=== PATIENT | female | born 1950 | race Hispanic/Latino ===

== ENCOUNTER 2018-12-13 17:42 | Emergency (ER) | payer BC, MEDICARE ==
[2018-12-13 18:20] VITALS: RESP 18
[2018-12-13] MEDS ORDERED: Sodium Chloride 0.9% 1,000 ML IV STA (19:28)
--- NOTE | 2018-12-13 19:46 | ED PDOC ---
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 Five days ago, patient reports she had a flu-like illness with cough, congestion, fever, and body aches, which is slowly resolving since, but with the development of the cheek swelling. This morning she went to [facility] where a mumps workup was started which is being sent off to the department of health. She was instructed to quarantine herself for the next five days while results were pending after coming to the ED to r/o parotid gland abscess. Denies having a fever for the past two days. Of note, patient states she has had mumps in the past, but never received the vaccination. PMD: Dr. 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; molly cell lymphoma - Surgical History Other surgeries: splenectomy - Family History Family History: States: Other Other Family History: cancer - Social History Current smoker - smoking cessation education provided: No - Home Medications Home Medications: Ambulatory Orders Medication Instructions Recorded RX: Clindamycin [Cleocin] 300 mg PO TID #21 cap 12/13/18 RX: Prednisone 50 mg PO DAILY #4 tablet 12/13/18 - Allergies Allergies/Adverse Reactions: Allergies Allergy/AdvReac Type Severity Reaction Status Date / Time amoxicillin Allergy RASH Verified 12/13/18 18:17 Review of Systems ROS Statement: Except As Marked, All Systems Reviewed And Found Negative (as per HPI) Constitutional: Positive for: Fever, Other (body aches) ENT: Positive for: Nose Congestion, Other (left cheek swelling associated with pain and difficulty opening/closing mouth) Respiratory: Positive for: Cough Physical Exam - Reviewed Nursing Documentation Reviewed: Yes Vital Signs Reviewed: Yes - Physical Exam Appears: Positive for: Well, No Acute Distress Skin: Positive for: Normal Color (with no erythema or ecchymosis) ENT: Negative for: Other (edema to left cheek with palpable mass within parotid gland, mildly tender to palpation; dry mucous membranes) - Laboratory Results Result Diagrams: 12/13/18 20:00 12/13/18 20:00 - ECG O2 Sat by Pulse Oximetry: 100 (RA) Pulse Ox Interpretation: Normal Medical Decision Making Medical Decision Making: Time: 1927 Initial Impression: parotid cheek swelling Initial Plan: --CT Maxillofacial w/ contrast --CMP --CBC with differential --Normal saline IV 2144 CT Maxillofacial FINDINGS: BONES: No acute fracture or aggressive appearing osseous lesion. The mandible is intact. Streak artifact arising from dental work causes image degradation of the oral cavity. 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 SOFT TISSUES: The left parotid salivary gland is asymmetrically enlarged and edematous thought consistent with sialadenitis. No sialolith is identified. Left molly-glandular soft tissue stranding is also demonstrated which could indicate associated left facial fasciitis. No subcutaneous gas is seen. No identification of abscess formation. The remaining salivary glands appeared unremarkable. SINUSES: There is mucoperiosteal thickening identified within the sphenoid, maxillary and ethmoid sinuses bilaterally consistent with sinusitis. The frontal sinuses appear satisfactorily developed and aerated. ORBITS: The orbits are normal. No retrobulbar hematoma or mass. IMPRESSION: 1. Left parotid sialadenitis. No subcutaneous abscess formation. 2. Left periglandular soft tissue stranding could be consistent with associated xkp-new-guiiher fasciitis involving the left mandibular facial soft tissues. 3. Sphenoid, bilateral maxillary and bilateral ethmoid sinusitis. 4. Advanced degenerative arthritis is noted within the atlanto-dens interval. Scribe Attestation: Documented by Ruth Marie acting as a scribe for Marcy Sexton MD. Provider Scribe Attestation: All medical record entries made by the Scribe were at my direction and personally dictated by me. I have reviewed the chart and agree that the record accurately reflects my personal performance of the history, physical exam, medical decision making, and the department course for this patient. I have also personally directed, reviewed, and agree with the discharge instructions and disposition. Disposition - Clinical Impression Clinical Impression: Parotitis Counseled Patient/Family Regarding: Studies Performed, Diagnosis, Need For Followup, Rx Given - Disposition Referrals: Miguel Angel Banks MD [Staff Provider] - Disposition: Routine/Home Disposition Time: 23:00 Condition: STABLE Additional Instructions: STAY HOME UNTIL YOU HEAR FROM THE DEPARTMENT OF HEALTH, EXCEPT WHEN YOU GET YOUR MEDICATIONS FROM THE PHARMACY PLEASE USE YOUR MASK ANYTIME YOU ARE OUT. TAKE MEDICATIONS PRESCRIBED FOLLOWUP WITH YOUR DOCTOR OR ENT IN A WEEK FOR REEVALUATION Prescriptions: RX: Clindamycin [Cleocin] 300 mg PO TID #21 cap RX: Prednisone 50 mg PO DAILY #4 tablet Instructions: Salivary Gland Infection (DC) Forms: [employer] ([place])
[2018-12-13] MEDS ORDERED: Iohexol 300 100 ML IJ ONE (19:49)
[2018-12-13] MEDS ORDERED: Sodium Chloride 0.9% 50 ML IV ONE (19:49)
[2018-12-13 20:13] LABS: ALB/GLOB RATIO 1.1 (1.0-2.1); ALBUMIN 4.2 g/dL (3.5-5.0); ALT/SGPT 38 U/L (9-52); AST/SGOT 70 U/L (14-36); BLOOD UREA NITROGEN 12 mg/dl (7-17); CALCIUM 10.2 mg/dL (8.4-10.2); GFR NON-AFRICAN AMERICAN > 60
[2018-12-13 20:15] LABS: BASO % 0.3 % (0.0-2.0); EOS % 1.5 % (0.0-4.0); HEMOGLOBIN 12.9 g/dL (12.0-16.0); LYMPH # 0.7 K/uL (1.0-4.3); LYMPH % 32.7 % (20.0-40.0); MEAN CELL VOLUME 115.6 fl (81.0-99.0); MEAN CORPUSCULAR HEMOGLOBIN 40.1 pg (27.0-31.0); MEAN CORPUSCULAR HGB CONC 34.7 g/dL (33.0-37.0); MEAN PLATELET VOLUME 8.7 fl (7.2-11.7); MONO # 0.1 K/uL (0.0-0.8); MONO % 4.7 % (0.0-10.0); NEUT # 1.3 K/uL (1.8-7.0); NEUT % 60.8 % (50.0-75.0); NRBC % 0.3 % (0.0-0.0); RBC 3.21 Mil/uL (3.80-5.20); RED CELL DISTRIBUTION WIDTH 14.4 % (11.5-14.5); WHITE BLOOD COUNT 2.2 K/uL (4.8-10.8)
[2018-12-13 23:02] VITALS: BP 130/67; PULSE 86
[2018-12-13 23:10] VITALS: TEMP 98.9
[2018-12-14 17:23] VITALS: O2SAT 100
--- NOTE | 2018-12-16 10:30 | CT ---
Date of service: 12/13/2018 PROCEDURE: HISTORY: LEFT parotid swelling r/o abscess COMPARISON: TECHNIQUE: FINDINGS: Evidence of left parotid sialadenitis without abscess formation. Left Shannan glandular soft tissue stranding compatible with non gas-forming fasciitis involving the left mandibular facial soft tissues. Evidence of diffuse sphenoid bilateral maxillary and bilateral ethmoid sinus disease. No evidence of calculus. Abnormal enhancing bilateral lymph nodes measuring up to 1 centimeter in adjacent to the right carotid sheath structures as well as in the left perimandibular and fat deep to the left sternocleidomastoid muscle. Assessment limited due to streak artifact from dental hardware. Underlying malignancy not excluded and correlation with direct endoscopic visual inspection recommended as clinically indicated. IMPRESSION: As above.
== END 2018-12-13 23:01 | disposition home or self-care (01) ==
LOC: H.ER 17:42
DX: K11.20 Sialoadenitis, unspecified (principal); Z85.72 Personal history of non-Hodgkin lymphomas
CPT/HCPCS: 70488; 80053; 85025; 96361; 96374; 99284; J1100; J7030; Q9967